=== PATIENT | female | born 1950 | race Caucasian/White ===

== ENCOUNTER 2020-08-18 06:30 | Day surgery (SDC) | payer OTHER ==
[~2020-08-18 06:30] MED LIST: AMBIEN10 MG PO; AMOX1TAB12 PO; AVAPRO150 MG PO; CHOLESTYRAMINE P4 GM PO; FIORICET 50-301 EACH PO; FLAGYL500MG PO; GLYNASE6 MG PO; HUMULIN 70/30 V10 ML SQ; INTESTINEX1 CA1 PO; Neurin-Sl Tablet Sl SL; PROTONIX40 MG PO; PYRIDOXINE HCL100 MG PO; TRAM1TAB98 PO; VITAMIN B COMPL1 CAP PO; ZOCOR40 MG PO; ZOLOFT50 MG PO
== END 2020-08-18 12:15 | disposition home or self-care (01) ==
LOC: AMB-ENDOS 06:30
PROVIDERS: ATTEND Surgery
DX: K62.89 Other specified diseases of anus and rectum (principal); K64.8 Other hemorrhoids; Z20.822 Contact with and (suspected) exposure to COVID-19